=== PATIENT | male | born 1990 | race Caucasian/White ===

== ENCOUNTER 2017-08-04 06:14 | Emergency (ER) | payer SELFPAY ==
[~2017-08-04] VITALS: Ht 190.5 cm; Wt 95.2 kg
[~2017-08-04 06:14] MED LIST: ANAPROX DS550 MG PO; CHLORDIAZEPOXID25 MG PO; CYCLOBENZAPRINE10 MG PO; MOTRIN IB200 MG PO
[2017-08-04] MEDS ORDERED: VISTARIL50 MG PO (06:42)
[2017-08-04] MEDS ORDERED: PENICILLIN V P500 MG PO (06:42)
== END 2017-08-04 06:59 | disposition home or self-care (01) ==
LOC: ED 06:14
DX: K08.89 Other specified disorders of teeth and supporting structures (principal); F41.0 Panic disorder [episodic paroxysmal anxiety]; F10.10 Alcohol abuse, uncomplicated; F15.10 Other stimulant abuse, uncomplicated; R06.4 Hyperventilation; F17.200 Nicotine dependence, unspecified, uncomplicated
CPT/HCPCS: 99283

== ENCOUNTER 2017-08-05 13:25 | Emergency (ER) | payer SELFPAY ==
[~2017-08-05] VITALS: Ht 190.5 cm; Wt 95.2 kg
[~2017-08-05 13:25] MED LIST changes: +PENICILLIN V P500 MG PO; +VISTARIL50 MG PO
== END 2017-08-05 15:38 | disposition home or self-care (01) ==
LOC: ED 13:25
DX: F10.10 Alcohol abuse, uncomplicated (principal); F15.10 Other stimulant abuse, uncomplicated; F17.200 Nicotine dependence, unspecified, uncomplicated; Z79.899 Other long term (current) drug therapy
CPT/HCPCS: 80053; 81001; 85025; 99284; G0480; J7030

== ENCOUNTER 2017-08-20 13:17 | Emergency (ER) | payer SELFPAY ==
[~2017-08-20] VITALS: Ht 190.5 cm; Wt 95.2 kg
== END 2017-08-20 14:44 | disposition left against medical advice (07) ==
LOC: ED 13:17
DX: Z53.21 Procedure and treatment not carried out due to patient leaving prior to being seen by health care provider (principal)

== ENCOUNTER 2017-08-23 19:08 | Emergency (ER) | payer SELFPAY ==
[~2017-08-23] VITALS: Ht 190.5 cm; Wt 95.2 kg
== END 2017-08-23 19:40 | disposition left against medical advice (07) ==
LOC: ED 19:08
DX: Z53.21 Procedure and treatment not carried out due to patient leaving prior to being seen by health care provider (principal)

== ENCOUNTER 2021-12-21 15:48 | Emergency (ER) | payer BC ==
[~2021-12-21] VITALS: Ht 190.5 cm; Wt 103.0 kg
--- OUTSIDE RECORDS SUMMARY | 2021-12-21 15:54 | XMS ---
PreManage Notification: CANDI SOMERS Security Dobie Man Events No recent Security Events currently on file CRITERIA MET - Group Notification CARE PROVIDERS [facility] Current PHONE: Unknown Abigail has no Care Guidelines for this patient. EMicheal VISIT COUNT (12 MO.) 1 [facility] [place] TOTAL 1 NOTE: Visits indicate total known visits. ED/UCC VISIT TRACKING (12 MO.) 12/21/2021 15:48 MEGAN [place] TYPE: Emergency COMPLAINT: - SYNCOPE INPATIENT VISIT TRACKING (12 MO.) No inpatient visits to display in this time frame [email or web address]
[2021-12-21] MEDS ORDERED: FEROSUL325 MG PO (16:42)
[2021-12-21] MEDS ORDERED: VITAMIN B-1100 M1 PO (18:52)
[2021-12-21] MEDS ORDERED: FOLIC ACID0.4 MG PO (18:52)
[2021-12-21] MEDS ORDERED: CHLORDIAZEPOXID25 MG PO (18:52)
--- NOTE | 2021-12-23 20:53 | EKG ---
[facility] [address] [place] [address] Signed Normal sinus rhythm Normal ECG When compared with ECG of 23-JUN-2017 08:50, QRS voltage has decreased Confirmed by Tristen Frost MD () on 12/23/2021 8:53:37 PM Electronically Signed By: TRISTEN FROST MD 12/23/212052 PATIENT NAME: CANDI SOMERS Electrocardiogram DATE OF : 86 PHYSICIAN: TRISTEN FROST MD REPORT #: [id number] REPORT IS CONFIDENTIAL AND NOT TO BE RELEASED WITHOUT AUTHORIZATION
== END 2021-12-21 19:33 | disposition home or self-care (01) ==
LOC: ED 15:48
DX: F10.239 Alcohol dependence with withdrawal, unspecified (principal); R55 Syncope and collapse; K74.60 Unspecified cirrhosis of liver; F17.200 Nicotine dependence, unspecified, uncomplicated
CPT/HCPCS: 36415; 80053; 81001; 83690; 83735; 85025; 85060; 85610; 93005; 93010; 96374; 99285-25; J2405; J7040